=== PATIENT | male | born 1990 | race Caucasian/White ===

== ENCOUNTER 2021-05-05 10:04 | Emergency (ER) | payer OTHER, SELFPAY ==
[2021-05-05 12:30] VITALS: BP 000/00; PULSE 0; RESP 0; TEMP -17.7; TEMP 0
== END 2021-05-05 12:31 | disposition left against medical advice (07) ==
LOC: UTC 10:11
PROVIDERS: Emergency Provider Nurse Practitioner Family
DX: Z53.21 Procedure and treatment not carried out due to patient leaving prior to being seen by health care provider (principal)
CPT/HCPCS: 99202; G0463